=== PATIENT | male | born 1955 | race Caucasian/White ===

== ENCOUNTER → 2020-03-12 10:32 | Outpatient (BNVA) | payer OTHER, SELFPAY | PROVIDERS: Visit Provider Nurse Practitioner Family | DX: M54.5 Low back pain (principal); Y99.0 Civilian activity done for income or pay; M54.6 Pain in thoracic spine; M54.2 Cervicalgia | CPT/HCPCS: 72040; 72072; 72100 ==

== ENCOUNTER 2020-03-28 09:46 | Outpatient (CLI) | payer OTHER, SELFPAY ==
--- NOTE | 2020-03-28 09:52 | MR_ITS ---
WS: [id number] MRI LUMBAR SPINE NONCONTRAST TECHNIQUE: Sagittal T1, T2 and STIR imaging. Axial T1 and T2 imaging. CLINICAL INFORMATION: Y99.0 - Civilian activity done for income or pay COMPARISON: None. FINDINGS: Mild lumbar curve. No acute compression. No high-grade central canal stenosis. Mild compression super ior endplate T11 with mild edema described on the thoracic spine MRI. L1-L2: No significant disc bulging. Mild facet arthropathy. Spinal canal and foramen are patent. L2-L3: No significant disc bulging. Mild facet arthropathy. Spinal canal and foramen are patent. L3-L4: Mild annular bulging with slight effacement of the ventral thecal sac. Slight narrowing of the right subarticular recess. Small right foraminal protrusion with mild right and no significant left foraminal narrowing. Slight encroachment traversing right L4 nerve root. L4-L5: Mild annular bulging with mild central canal stenosis and narrowing of the subarticular recess bilaterally. Shallow central disc protrusion. Mild bilateral foraminal narrowing right greater than left. Mild facet arthropathy. L5-S1: Minimal annular bulging. Spinal canal and foramen are patent. Mild facet arthropathy. Visualized pelvic bony structures: Normal. Paravertebral soft tissues: Normal. MR/MR lumbar spine wo con* [id number] IMPRESSION: 1. Mild lumbar curve. No acute compression. No high-grade central canal stenos is. 2. Disc bulging worse L4-5 with a broad-based central disc protrusion with imp ingement on the left greater than right subarticular recess and traversing L5 n erve roots left greater than right. 3. Mild bilateral L4-5 foraminal narrowing right greater than left. 4. Tiny right foraminal protrusion L3-4 with mild right foraminal narrowing an d slight narrowing of the right subarticular recess. 5. Mild facet arthropathy L3-L5. 6. Mild compression superior endplate T11 with mild edema described on the tho racic spine MRI.
--- NOTE | 2020-03-28 09:52 | MR_ITS ---
WS: [id number] MRI CERVICAL SPINE NONCONTRAST TECHNIQUE: Sagittal T1, T2 and STIR imaging. Axial T2, gradient, and fiesta imaging. CLINICAL INFORMATION: Y99.0 - Civilian activity done for income or pay COMPARISON: None. FINDINGS: Straightening of the normal cervical lordosis. Moderate spondylitic changes. Mild disc bulging throug hout the cervical spine C3 through C7. This is worse at C5-C6 and C6-C7. Cord signal is normal. Moder ate central canal stenosis C4-C6. C2-C3: Mild right and no significant left foraminal narrowing. Mild facet arthropathy. Spinal canal i s patent. C3-C4: Small broad-based central protrusion with mild central canal stenosis. Moderate left and mild right foraminal narrowing. Mild central canal stenosis. Mild facet arthropathy. C4-C5: Disc osteophyte complex with endplate ridging. Moderate central canal stenosis and contact of the cervical cord. Severe left and moderate right bony foraminal narrowing. C5-C6: Disc osteophyte complex with endplate ridging. Moderate central canal stenosis with indentatio n of the cervical cord. Severe right greater than left bony foraminal narrowing. Mild facet arthropat hy. C6-C7: Left pericentral disc osteophyte protrusion impinges the left ventral cervical cord with mild flattening. Moderate central canal stenosis. Severe left and moderate to severe right bony foraminal narrowing. Mild facet arthropathy. C7-T1: Small right pericentral protrusion. Slight contact of the cervical cord. Mild central canal st enosis. Mild left and no significant right foraminal narrowing. Visualized brain stem structures: Normal. Prevertebral soft tissues: Normal. Polypoid mucosal thickening in the paranasal sinuses partially visualized. MR/MR cervical spin wo con* [id number] IMPRESSION: 1. Straightening of the normal cervical lordosis with moderate spondylitic lexus nges. Disc osteophyte complexes worse at C5-C6 and C6-C7. 2. Moderate central canal stenosis C4-C5, C5-C6, and C6-C7 with indentation on cervical cord worse at left C6-7. Moderate central canal stenosis at these lev els. 3. Left pericentral disc osteophyte complex C5-C6 with indentation on cervical cord and moderate central canal stenosis. 4. Left pericentral disc osteophyte protrusion C6-C7 with indentation and flat tening of the left ventral cervical cord. Moderate central canal stenosis. 5. Small central disc protrusion C3-C4 and C7-T1 with mild central canal steno sis. 6. Multilevel moderate to severe bony foraminal narrowing worse at left C4-5, bilateral C5-C6, and bilateral C6-7 worse in the left.
--- NOTE | 2020-03-28 09:52 | MR_ITS ---
WS: [id number] MRI THORACIC SPINE WITHOUT CONTRAST TECHNIQUE: Sagittal T1, T2 and STIR imaging. Axial T2 imaging. Noncontrast imaging obtained. CLINICAL INFORMATION: Y99.0 - Civilian activity done for income or pay COMPARISON: None. FINDINGS: Mild thoracic curve. Mild thoracic kyphosis. Chronic anterior wedging in the mid thoracic spine with endplate Schmorl's nodes. Small acute appearing compression fracture involving the superior endplate at T11 with mild edema. No significant loss of endplate height. No retropulsion. Moderate facet arthr opathy in the lower thoracic spine. Mild bony foraminal narrowing bilateral T9-T10, right T10-11. Normal caliber thoracic aorta. Adrenal glands are normal. MR/MR thoracic spin wo con* [id number] IMPRESSION: 1. Mild thoracic curve. Mild thoracic kyphosis. No high-grade central canal na rrowing. Cord signal is normal. 2. Mild acute appearing compression superior endplate T11 with mild edema. No significant loss of vertebral body height. 3. Chronic anterior wedging in the mid thoracic spine at T7-T9 with endplate S chmorl's nodes. 4. Mild bony foraminal narrowing described above. 5. Moderate facet arthropathy in the lower thoracic spine.
== END 2020-03-28 09:47 | disposition home or self-care (01) ==
PROVIDERS: PCP Family Medicine; Visit Provider Nurse Practitioner Family
DX: M40.294 Other kyphosis, thoracic region (principal); Y99.0 Civilian activity done for income or pay; M48.54XA Collapsed vertebra, not elsewhere classified, thoracic region, initial encounter for fracture; M47.814 Spondylosis without myelopathy or radiculopathy, thoracic region; M47.816 Spondylosis without myelopathy or radiculopathy, lumbar region; M51.26 Other intervertebral disc displacement, lumbar region; M25.78 Osteophyte, vertebrae; M48.02 Spinal stenosis, cervical region; M50.21 Other cervical disc displacement, high cervical region
CPT/HCPCS: 72141; 72146; 72148

== ENCOUNTER → 2020-05-30 09:39 | Outpatient (BNVA) | payer MEDICARE, SELFPAY | PROVIDERS: PCP Family Medicine; Visit Provider Nurse Practitioner Family | DX: I10 Essential (primary) hypertension (principal); E78.2 Mixed hyperlipidemia; F41.9 Anxiety disorder, unspecified; Z68.30 Body mass index [BMI] 30.0-30.9, adult; F17.211 Nicotine dependence, cigarettes, in remission | CPT/HCPCS: 80053; 80061; 84443; 85025 ==

== ENCOUNTER → 2020-07-04 09:20 | Outpatient (BNVA) | payer MEDICARE, SELFPAY | PROVIDERS: PCP Family Medicine; Visit Provider Nurse Practitioner Family | DX: E87.1 Hypo-osmolality and hyponatremia (principal); E78.2 Mixed hyperlipidemia; I10 Essential (primary) hypertension; F41.9 Anxiety disorder, unspecified | CPT/HCPCS: 80048 ==

== ENCOUNTER → 2020-11-19 09:36 | Outpatient (BNVA) | payer MEDICARE, SELFPAY | PROVIDERS: PCP Family Medicine; Visit Provider Nurse Practitioner Family | DX: I10 Essential (primary) hypertension (principal); Z12.5 Encounter for screening for malignant neoplasm of prostate; F41.9 Anxiety disorder, unspecified; E78.2 Mixed hyperlipidemia | CPT/HCPCS: 80053; 80061; 85025; G0103 ==

== ENCOUNTER → 2021-01-06 16:00 | Outpatient (BNVA) | payer MEDICARE, OTHER, SELFPAY | PROVIDERS: PCP Family Medicine; Visit Provider Nurse Practitioner Family | DX: Z20.822 Contact with and (suspected) exposure to COVID-19 (principal); J01.90 Acute sinusitis, unspecified | CPT/HCPCS: 87635 ==

== ENCOUNTER → 2021-08-06 09:15 | Outpatient (BNVA) | payer MEDICARE, OTHER, SELFPAY | PROVIDERS: PCP Family Medicine; Visit Provider Nurse Practitioner | DX: I10 Essential (primary) hypertension (principal) | CPT/HCPCS: 80053; 80061; 85025 ==

== ENCOUNTER → 2021-09-21 10:10 | Outpatient (BNVA) | payer MEDICARE, OTHER, SELFPAY | PROVIDERS: PCP Family Medicine; Visit Provider Specialist | DX: M70.21 Olecranon bursitis, right elbow (principal) | CPT/HCPCS: 73080; 99203 ==

== ENCOUNTER → 2022-04-26 13:49 | Outpatient (BNVA) | payer MEDICARE, OTHER, SELFPAY | PROVIDERS: PCP Family Medicine; Visit Provider Dermatology | DX: D48.9 Neoplasm of uncertain behavior, unspecified (principal); Z85.828 Personal history of other malignant neoplasm of skin; L57.0 Actinic keratosis; L81.4 Other melanin hyperpigmentation | CPT/HCPCS: 88305 ==

== ENCOUNTER → 2022-05-03 09:13 | Outpatient (BNVA) | payer MEDICARE, OTHER, SELFPAY | PROVIDERS: PCP Family Medicine; Visit Provider Family Medicine | DX: M65.321 Trigger finger, right index finger (principal); E78.2 Mixed hyperlipidemia; F41.9 Anxiety disorder, unspecified; I10 Essential (primary) hypertension; Z12.5 Encounter for screening for malignant neoplasm of prostate | CPT/HCPCS: 80053; 80061; 84443; 85025; G0103 ==

== ENCOUNTER → 2022-05-24 08:51 | Outpatient (BNVA) | payer MEDICARE, OTHER, SELFPAY | PROVIDERS: PCP Family Medicine; Referring Provider Family Medicine; Visit Provider Specialist | DX: M65.321 Trigger finger, right index finger (principal) | CPT/HCPCS: 73130; 99214 ==

== ENCOUNTER → 2022-06-01 15:28 | Outpatient (BNVA) | payer MEDICARE, OTHER, SELFPAY | PROVIDERS: PCP Family Medicine; Visit Provider Dermatology | DX: L57.8 Other skin changes due to chronic exposure to nonionizing radiation (principal); Z48.817 Encounter for surgical aftercare following surgery on the skin and subcutaneous tissue; Z98.890 Other specified postprocedural states; Z85.828 Personal history of other malignant neoplasm of skin; Z87.891 Personal history of nicotine dependence | CPT/HCPCS: 99213 ==

== ENCOUNTER 2022-06-18 06:50 | Day surgery (SDC) | payer MEDICARE, OTHER, SELFPAY ==
[2022-06-17 08:41] VITALS: BMI 29.0
[2022-06-18] VITALS (10 sets, daily range): BP systolic 136–174; BP diastolic 70–87; PULSE 50–58; RESP 16–18; TEMP 36.1–36.3; O2SAT 93–99
[2022-06-18] MEDS: acetaminophen 1,000 MG/100 ML PIGGYBACK 400 MG IV (07:21)
[2022-06-18] MEDS: CELEcoxib 200 mg Capsule 400 MG PO (07:21)
[2022-06-18] MEDS: sodium chloride 0.9% 1,000 ML 30 ML IV (07:22)
--- NOTE | 2022-06-18 07:59 | W.PM.OPSUD ---
Surgery/Procedure H&P Update DATE OF PROCEDURE: June 18, 2022 DATE H&P PERFORMED: 05/24/22 H&P UPDATE INFORMATION: I have reviewed H&P completed within last 30 days, I have examined patient prior to procedure, No changes to prior documentation and H&P is in [facility] EMR on date indicated PREOP DIAGNOSIS: Right index finger triggering PLANNED PROCEDURE: Operation Date: 06/18/22 08:25 Proposed Procedures p RT HAND INDEX FINGER TRIGGER FINGER RELEASE. [id number],M65.30(Right) - Indu Ramirez MD Related Problem List Diagnoses (1) Trigger finger, right index finger:
--- NOTE | 2022-06-18 08:38 | ANES.PREANE2 ---
Pre-Anesthetic Assessment Height/Weight: Height 1.68 m Weight 81.647 kg Temp Pulse Resp BP Pulse Ox O2 Del Method 97 F L 58 L 18 144/87 97 Room Air 06/18/22 06:56 06/18/22 06:56 06/18/22 06:56 06/18/22 06:56 06/18/22 06:56 06/18/22 07:16 Preop Diagnosis: Right index finger triggering Operation Date: 06/18/22 08:25 Proposed Procedures p RT HAND INDEX FINGER TRIGGER FINGER RELEASE. [id number],M65.30(Right) - Indu Ramirez MD Familial anesthetic complications: none Was Beta Enrique taken within 24 hours: Yes Was Clonidine taken within 24 hours: N/A Last intake: Intake Last Liquid Date 06/17/22 Last Liquid Time 22:30 Last Solid Date 06/17/22 Last Solid Time 22:30 Social No alcohol and No tobacco Exam alert, oriented x 3, clear to auscultation bilaterally and regular rate & rhythm Airway Submandibular: within normal limits Cervical ROM: within normal limits Mallampati: Class II CV/HEM Hypertension Metabolic Hyperlipidemia Neuropsych Anxiety Anesthetic Plan ASA status: 2 Anesthesia: Choice Medications/Allergies Home Medications Medication Instructions Recorded Confirmed Last Taken Type meloxicam 15 mg tablet 15 mg PO DAILY #30 tabs 10/06/21 06/17/22 06/16/22 Rx buspirone 10 mg tablet 10 mg PO BID PRN anxiety #60 tabs 05/03/22 06/18/22 06/16/22 Rx rosuvastatin 40 mg tablet (Crestor) 40 mg PO .every other day #90 tabs 05/03/22 06/17/22 06/17/22 Rx atenolol 50 mg tablet 50 mg PO DAILY 06/17/22 06/17/22 06/17/22 History lisinopril 20 1 tab PO DAILY 06/17/22 06/17/22 06/17/22 History mg-hydrochlorothiazide 25 mg tablet Allergies Allergy/AdvReac Type Severity Reaction Status Date / Time No Known Allergies Allergy Verified 06/18/22 07:01 Current Medications Generic Name Dose Route Start Last Admin Trade Name Freq PRN Reason Stop Dose Admin Sodium Chloride 1,000 mls @ 30 mls/hr 06/18/22 07:00 06/18/22 07:22 Sodium Chloride 0.9% IV 06/19/22 06:59 30 mls/hr .Q24H FER Administration PFSH Anesthesia Medical History History of nonmelanoma skin cancer Hypertension Mixed hyperlipidemia Osteoarthritis Surgical History Hx of colonoscopy (~09/2016) Hx of repair of rotator cuff (~1990) Family History Mother , age 72 Cancer Father Hypertension Heart disease Sister Hypertension Social History Smoking and tobacco status: former smoker Second hand smoke exposure: No Alcohol intake: current Alcohol intake frequency: few times a month Substance/Drug Use: never Caregiver/support person: Yes Lives independently: Yes Household members: spouse Housing: House Marital status: Current occupational status: retired Current gender identity: Male Special enrike needs: No Agree to transfusion: Yes Data Anesthesia Cardiac Studies: No Data to Display
[2022-06-18] MEDS: ceFAZolin 2,000 MG in sodium chloride 0.9% (plus) 50 ML 100 MG IV (09:13)
--- NOTE | 2022-06-18 10:08 | P.OP_ITS ---
Operative Report Date of procedure: June 18, 2022 Pre-op diagnosis: Triggering right index finger Post-op diagnosis: Triggering right index finger Post-op findings: Significant thickening of the A1 rosetta and fibrous tissue over the flexor tendons of the index finger Procedure done: Trigger finger release right index finger Pathology: none sent Surgeon: Indu Ramirez Farm Tractor Operator: None Anesthesia: General (LMA, ASA 2) Estimated blood loss (mL): 5 Tourniquet time (min): 17 (At 250 mmHg) IV fluids (mL): 700 Urine output (mL): 0 (No Harris) Complications: None Findings: Significant thickening of the A1 rosetta and tenosynovium Condition: stable Disposition: PACU (Then return to same-day surgery for discharge to home) Brief History: Fredy Morales is a 66 year old male patient who is here today for release of his right index finger. Patient denies pain in clinic today, and he states that when it flares up, he takes Meloxicam to calm it.? Triggering has been going on for 6 weeks.? After discussion in the office, the patient wished to proceed with trigger finger release. Risks and complications were discussed with him. Consents were signed in the office and questions were answered. Procedure: Patient was brought to the operating theater.? She was placed on the operating room table.? Patient had general anesthesia administered per LMA, ASA 3.? A tourniquet was placed high on the arm and was elevated to 250 mmHg following exsanguination of the arm. Tourniquet time was 17 minutes. Surgical pause was performed prior to commencement of the surgical procedure. At the time of the surgical pause we identified the site and side of surgery. We also identified the patient's identity and appropriate administration of IV antibiotics. Following the surgical pause, an incision was made along the distal palmar crease beneath the index finger centering over the metacarpal phalangeal joint. Dissection continued through the skin to the subcutaneous tissues using a scalpel. Blunt dissection was then utilized to spread soft tissues and allow access to the A1 rosetta.? It was then incised longitudinally and sharply using a knife. This was accomplished without difficulty and atraumatically. Once the A1 rosetta was released, tendons were brought up out of the wound and evaluated. There were no gross masses on the tendons, but there was significantly thickened tenosynovium which was incised longitudinally proximal to the A1 rosetta.? Tendons were subsequently returned to normal position. We then irrigated the wound and subsequently closed it with 3-0 nylon with an interrupted mattress type suture. Following closure of the wound, the wound was injected with local anesthetic into the subcutaneous tissues. Sterile dressing was then placed consisting of Dermabond, OpSite, fluffed fluffs, sterile soft roll, and an Chang wrap. The patient was returned to recovery in satisfactory condition.? She will be discharged home to follow-up with me in the office. There were no complications and no specimens. Related Problem List Diagnoses (1) Trigger finger, right index finger:
[2022-06-18] MEDS: HYDROcodone-acetaminophen 5-325 mg Tablet 1 TAB PO (11:22)
--- NOTE | 2022-06-18 14:31 | ANE.PACU2 ---
Inpatient post-anesthesia follow up: Airway intact: Yes Vital signs: Temperature 97.4 F Pulse Rate 54 Respiratory Rate 18 Blood Pressure 136/77 Pulse Oximetry 98 Oxygen Delivery Me thod Room Air Oxygen Flow Rate Fraction of Inspir ed Oxygen Hydration adequate: Yes Nausea and vomiting: No Pain level: 2 Mental status: Baseline
== END 2022-06-18 11:27 | disposition home or self-care (01) ==
PROVIDERS: PCP Family Medicine; Visit Provider Specialist
PROC: (CPT 26055; principal; 2022-06-18 08:25)
DX: M65.321 Trigger finger, right index finger (principal); I10 Essential (primary) hypertension; E78.5 Hyperlipidemia, unspecified; F41.9 Anxiety disorder, unspecified; Z87.891 Personal history of nicotine dependence
CPT/HCPCS: 26055; J0131; J0690; J2405; J2704; J3010; J3490; J7030

== ENCOUNTER → 2022-07-01 09:09 | Outpatient (BNVA) | payer MEDICARE, OTHER, SELFPAY | PROVIDERS: PCP Family Medicine; Visit Provider Nurse Practitioner Family | DX: M65.321 Trigger finger, right index finger (principal); Z98.890 Other specified postprocedural states | CPT/HCPCS: 99024 ==

== ENCOUNTER → 2022-10-25 11:34 | Outpatient (BNVA) | payer MEDICARE, OTHER, SELFPAY | PROVIDERS: PCP Nurse Practitioner Family; Visit Provider Nurse Practitioner Family | DX: I10 Essential (primary) hypertension (principal); F41.9 Anxiety disorder, unspecified; E78.2 Mixed hyperlipidemia; M19.90 Unspecified osteoarthritis, unspecified site | CPT/HCPCS: 80053; 80061; 84443; 85025 ==

== ENCOUNTER → 2022-10-27 09:08 | Outpatient (BNVA) | payer MEDICARE, OTHER, SELFPAY | PROVIDERS: PCP Nurse Practitioner Family; Visit Provider Nurse Practitioner Family | DX: L81.4 Other melanin hyperpigmentation (principal); L57.8 Other skin changes due to chronic exposure to nonionizing radiation; D22.5 Melanocytic nevi of trunk; L82.1 Other seborrheic keratosis; Z85.828 Personal history of other malignant neoplasm of skin; Z85.820 Personal history of malignant melanoma of skin; L82.0 Inflamed seborrheic keratosis; L57.0 Actinic keratosis | CPT/HCPCS: 17000; 17110; 99213 ==

== ENCOUNTER → 2023-04-27 09:01 | Outpatient (BNVA) | payer MEDICARE, OTHER, SELFPAY | PROVIDERS: PCP Nurse Practitioner Family; Visit Provider Nurse Practitioner Family | DX: C44.519 Basal cell carcinoma of skin of other part of trunk (principal); L57.0 Actinic keratosis; L81.4 Other melanin hyperpigmentation; Z85.820 Personal history of malignant melanoma of skin; Z85.828 Personal history of other malignant neoplasm of skin | CPT/HCPCS: 17004; 99213 ==

== ENCOUNTER → 2023-05-03 09:14 | Outpatient (BNVA) | payer MEDICARE, OTHER, SELFPAY | PROVIDERS: PCP Nurse Practitioner Family; Visit Provider Nurse Practitioner Family | DX: I10 Essential (primary) hypertension (principal) | CPT/HCPCS: 80053; 80061; 84443; 85025 ==

== ENCOUNTER → 2023-05-10 07:57 | Outpatient (BNVA) | payer MEDICARE, OTHER, SELFPAY | PROVIDERS: PCP Nurse Practitioner Family; Visit Provider Dermatology | DX: C44.519 Basal cell carcinoma of skin of other part of trunk (principal) | CPT/HCPCS: 12032; 17313 ==

== ENCOUNTER → 2023-08-30 13:53 | Outpatient (BNVA) | payer MEDICARE, OTHER, SELFPAY | PROVIDERS: PCP Nurse Practitioner Family; Visit Provider Nurse Practitioner Family | DX: D48.5 Neoplasm of uncertain behavior of skin (principal); Z85.820 Personal history of malignant melanoma of skin; Z85.828 Personal history of other malignant neoplasm of skin; L57.0 Actinic keratosis; L81.4 Other melanin hyperpigmentation; L57.8 Other skin changes due to chronic exposure to nonionizing radiation; D22.5 Melanocytic nevi of trunk; L82.1 Other seborrheic keratosis | CPT/HCPCS: 11102; 17000; 99213 ==

== ENCOUNTER → 2023-09-28 12:33 | Outpatient (BNVA) | payer MEDICARE, OTHER, SELFPAY | PROVIDERS: PCP Nurse Practitioner Family; Visit Provider Dermatology | DX: D03.61 Melanoma in situ of right upper limb, including shoulder (principal); L57.0 Actinic keratosis; Z85.820 Personal history of malignant melanoma of skin; Z85.828 Personal history of other malignant neoplasm of skin | CPT/HCPCS: 11604; 12032; 17000; 99213 ==

== ENCOUNTER → 2023-10-20 09:03 | Outpatient (BNVA) | payer MEDICARE, OTHER, SELFPAY | PROVIDERS: PCP Nurse Practitioner Family; Visit Provider Nurse Practitioner Family | DX: Z12.5 Encounter for screening for malignant neoplasm of prostate (principal); I10 Essential (primary) hypertension | CPT/HCPCS: 80053; 80061; 84443; 85025; G0103 ==

== ENCOUNTER → 2024-01-02 09:45 | Outpatient (BNVA) | payer MEDICARE, OTHER, SELFPAY | PROVIDERS: PCP Nurse Practitioner Family; Visit Provider Nurse Practitioner Family | DX: L81.4 Other melanin hyperpigmentation (principal); L57.8 Other skin changes due to chronic exposure to nonionizing radiation; D22.5 Melanocytic nevi of trunk; L82.1 Other seborrheic keratosis; Z85.820 Personal history of malignant melanoma of skin; Z85.828 Personal history of other malignant neoplasm of skin; L57.0 Actinic keratosis | CPT/HCPCS: 17000; 99213 ==

== ENCOUNTER → 2024-04-13 09:25 | Outpatient (BNVA) | payer MEDICARE, OTHER, SELFPAY | PROVIDERS: PCP Nurse Practitioner Family; Visit Provider Nurse Practitioner Family | DX: L57.8 Other skin changes due to chronic exposure to nonionizing radiation (principal); Z85.820 Personal history of malignant melanoma of skin; Z08 Encounter for follow-up examination after completed treatment for malignant neoplasm; Z85.828 Personal history of other malignant neoplasm of skin; L57.0 Actinic keratosis | CPT/HCPCS: 17000; 99213 ==

== ENCOUNTER → 2024-04-30 13:10 | Outpatient (BNVA) | payer MEDICARE, OTHER, SELFPAY | PROVIDERS: PCP Nurse Practitioner Family; Visit Provider Nurse Practitioner Family | DX: I10 Essential (primary) hypertension (principal) | CPT/HCPCS: 80053; 80061; 85025 ==

== ENCOUNTER → 2024-05-23 15:31 | Outpatient (BNVA) | payer MEDICARE, OTHER, SELFPAY | PROVIDERS: PCP Nurse Practitioner Family; Visit Provider Nurse Practitioner Family | DX: L81.4 Other melanin hyperpigmentation (principal); L57.8 Other skin changes due to chronic exposure to nonionizing radiation; D22.5 Melanocytic nevi of trunk; Z85.820 Personal history of malignant melanoma of skin; Z08 Encounter for follow-up examination after completed treatment for malignant neoplasm; Z85.828 Personal history of other malignant neoplasm of skin; D48.5 Neoplasm of uncertain behavior of skin; L57.0 Actinic keratosis | CPT/HCPCS: 11102; 17000; 99213 ==

== ENCOUNTER → 2024-06-19 08:55 | Outpatient (BNVA) | payer MEDICARE, OTHER, SELFPAY | PROVIDERS: PCP Nurse Practitioner Family; Visit Provider Dermatology | DX: C44.329 Squamous cell carcinoma of skin of other parts of face (principal) | CPT/HCPCS: 13132; 17311 ==

== ENCOUNTER → 2024-08-14 09:49 | Outpatient (BNVA) | payer MEDICARE, OTHER, SELFPAY | PROVIDERS: PCP Nurse Practitioner Family; Visit Provider Nurse Practitioner Family | DX: L81.4 Other melanin hyperpigmentation (principal); L57.8 Other skin changes due to chronic exposure to nonionizing radiation; D22.5 Melanocytic nevi of trunk; D36.11 Benign neoplasm of peripheral nerves and autonomic nervous system of face, head, and neck; I82.1 Thrombophlebitis migrans; Z85.820 Personal history of malignant melanoma of skin; Z08 Encounter for follow-up examination after completed treatment for malignant neoplasm; Z85.828 Personal history of other malignant neoplasm of skin; D48.5 Neoplasm of uncertain behavior of skin; L57.0 Actinic keratosis | CPT/HCPCS: 11102; 17000; 99213 ==

== ENCOUNTER → 2024-11-27 10:23 | Outpatient (BNVA) | payer MEDICARE, OTHER, SELFPAY | PROVIDERS: PCP Nurse Practitioner Family; Visit Provider Nurse Practitioner Family | DX: I10 Essential (primary) hypertension (principal); Z12.5 Encounter for screening for malignant neoplasm of prostate | CPT/HCPCS: 80053; 80061; 82607; 84443; 85025; G0103 ==

== ENCOUNTER → 2025-01-10 10:23 | Outpatient (BNVA) | payer MEDICARE, OTHER, SELFPAY | PROVIDERS: PCP Nurse Practitioner Family; Visit Provider Nurse Practitioner Family | DX: L81.4 Other melanin hyperpigmentation (principal); L57.8 Other skin changes due to chronic exposure to nonionizing radiation; Z85.820 Personal history of malignant melanoma of skin; Z08 Encounter for follow-up examination after completed treatment for malignant neoplasm; Z85.828 Personal history of other malignant neoplasm of skin; L57.0 Actinic keratosis; D48.5 Neoplasm of uncertain behavior of skin | CPT/HCPCS: 17004; 17260; 99213 ==